=== PATIENT | female | born 1980 | race Caucasian/White ===

== ENCOUNTER 2016-05-03 09:58 | Outpatient (CLI) ==
[2016-05-03 10:24] LABS: BASOPHILS % (AUTO) 0.3 % (0.0-3.0); EOSINOPHILS # (AUTO) 0.1 K/ul (0.0-0.7); EOSINOPHILS % (AUTO) 0.9 % (0.0-7.0); HEMATOCRIT 35.3 % (37.0-47.0); HEMOGLOBIN 12.3 g/dl (12.0-16.0); IMMATURE GRANULOCYTE % (AUTO) 0.3 % (0.0-5.0); LYMPHOCYTES # (AUTO) 1.9 K/uL (0.60-3.4); LYMPHOCYTES % (AUTO) 26.9 (10.0-50.0); MEAN CORPUSCULAR HEMOGLOBIN 31.3 pg (27.0-31.0); MEAN CORPUSCULAR HGB CONC 34.8 (31.8-35.4); MEAN CORPUSCULAR VOLUME 89.8 fl (81.0-99.0); MONOCYTES # (AUTO) 0.3 K/uL (0.4-2.0); MONOCYTES % (AUTO) 4.7 (0-10); NEUTROPHILS # (AUTO) 4.7 K/ul (2.0-6.9); NEUTROPHILS % (AUTO) 66.9; PLATELET COUNT 227 10^3/uL (140-440); RED BLOOD COUNT 3.93 10^6/ul (4.20-5.40); WHITE BLOOD COUNT 7.03 K/ul (4.6-10.2)
[2016-05-06 09:28] LABS: RH FACTOR POS
[2016-05-06 09:29] LABS: HIV ANTIBODIES QUALITATIVE NON REACTIVE NP (Nonreactive); RAPID PLASMA REAGIN NON REACTIVE
[2016-05-06 09:32] LABS: VARICELLA IGG ANTIBODY 932 (Immune)
== END 2016-05-03 09:59 | disposition home or self-care (01) ==
LOC: LAB 09:58
PROVIDERS: ATTEND Nurse Practitioner Family
DX: N91.2 Amenorrhea, unspecified (principal); E03.9 Hypothyroidism, unspecified
CPT/HCPCS: 36415; 84439; 84443; 85025; 86592; 86701; 86762; 86765; 86787; 86900; 86901; 86902; 87340

== ENCOUNTER 2016-07-22 03:36 | Outpatient (CLI) | END 2016-07-22 03:37 | disposition home or self-care (01) | LOC: AMBL 03:36 | PROVIDERS: ATTEND Internal Medicine Geriatric Medicine | DX: R51 Headache (principal); R41.0 Disorientation, unspecified; I10 Essential (primary) hypertension; R53.1 Weakness; Z33.1 Pregnant state, incidental ==

== ENCOUNTER 2017-01-17 06:55 | Outpatient (CLI) | END 2017-01-17 06:56 | disposition home or self-care (01) | LOC: LAB 06:55 | PROVIDERS: ATTEND Obstetrics & Gynecology | DX: Z86.39 Personal history of other endocrine, nutritional and metabolic disease (principal) | CPT/HCPCS: 36415; 84443 ==

== ENCOUNTER 2017-08-22 15:32 | Outpatient (CLI) | END 2017-08-22 15:33 | disposition home or self-care (01) | LOC: LAB 15:32 | DX: I67.1 Cerebral aneurysm, nonruptured (principal); D68.9 Coagulation defect, unspecified | CPT/HCPCS: 36415; 80048; 85027; 85610; 85730 ==

== ENCOUNTER 2017-11-01 07:40 | Outpatient (CLI) | END 2017-11-01 07:41 | disposition home or self-care (01) | LOC: LAB 07:40 | PROVIDERS: ATTEND Neurological Surgery | DX: I67.1 Cerebral aneurysm, nonruptured (principal); Z01.818 Encounter for other preprocedural examination | CPT/HCPCS: 36415; 80048; 85027; 85610; 85730 ==

== ENCOUNTER 2017-12-26 07:16 | Outpatient (CLI) | END 2017-12-26 07:17 | disposition home or self-care (01) | LOC: LAB 07:16 | PROVIDERS: ATTEND Family Medicine | DX: I10 Essential (primary) hypertension (principal); E03.9 Hypothyroidism, unspecified | CPT/HCPCS: 36415; 80053; 80061; 84443; 85025 ==

== ENCOUNTER 2018-05-01 10:27 | Outpatient (CLI) | payer OTHER | END 2018-05-01 10:28 | disposition home or self-care (01) | LOC: LAB 10:27 | PROVIDERS: ATTEND Neurological Surgery | DX: Z01.818 Encounter for other preprocedural examination (principal); Z01.812 Encounter for preprocedural laboratory examination; I67.1 Cerebral aneurysm, nonruptured | CPT/HCPCS: 36415; 80048; 85027; 85610; 85730 ==

== ENCOUNTER 2018-06-06 08:47 | Outpatient (CLI) | END 2018-06-06 08:48 | disposition home or self-care (01) | LOC: LAB 08:47 | PROVIDERS: ATTEND Physician Assistant | DX: J02.9 Acute pharyngitis, unspecified (principal) | CPT/HCPCS: 87651 ==

== ENCOUNTER 2018-06-26 07:07 | Outpatient (CLI) | payer OTHER | END 2018-06-26 07:08 | disposition home or self-care (01) | LOC: LAB 07:07 | PROVIDERS: ATTEND Family Medicine | DX: E03.9 Hypothyroidism, unspecified (principal); I10 Essential (primary) hypertension | CPT/HCPCS: 36415; 80053; 84443; 85025 ==

== ENCOUNTER 2018-08-07 10:21 | Outpatient (CLI) | payer OTHER | END 2018-08-07 10:22 | disposition home or self-care (01) | LOC: LAB 10:21 | PROVIDERS: ATTEND Family Medicine | DX: D64.9 Anemia, unspecified (principal) | CPT/HCPCS: 36415; 85025 ==

== ENCOUNTER 2018-08-10 07:12 | Outpatient (CLI) | END 2018-08-10 07:13 | disposition home or self-care (01) | LOC: LAB 07:12 | PROVIDERS: ATTEND Family Medicine | DX: D64.9 Anemia, unspecified (principal) | CPT/HCPCS: 36415; 82607; 82728; 83540 ==